=== PATIENT | female | born 1950 | race Caucasian/White ===

== ENCOUNTER 2017-09-24 09:37 | Day surgery (SDC) | payer OTHER ==
[2017-09-19 13:32] VITALS: BMI 24.4
[2017-09-24] MEDS ORDERED: PROPOFOL 20 ML ONE ×2 (09:41)
[2017-09-24 12:29] VITALS: TEMP 97.6
[2017-09-24 12:34] VITALS: BP 112/60; PULSE 59
== END 2017-09-24 12:15 | disposition home or self-care (01) ==
LOC: FASU-ENDO 09:37
PROVIDERS: ATTEND Internal Medicine Gastroenterology
PROC: 0DJD8ZZ Inspection of Lower Intestinal Tract, Via Natural or Artificial Opening Endoscopic (ICD-10-PCS; principal; 2017-09-24 10:50)
DX: Z12.11 Encounter for screening for malignant neoplasm of colon (principal); Z83.71 Family history of colonic polyps